=== PATIENT | female | born 1950 | race Caucasian/White ===

== ENCOUNTER 2018-10-30 10:02 | Day surgery (SDC) ==
[2018-10-27 10:24] LABS: HEMATOCRIT 40.1 % (37.0-47.0); HEMOGLOBIN 12.9 g/dL (12.0-16.0); MCH 29.7 PG (27-31); MCHC 32.2 g/dL (33-37); MCV 92.2 FL (81-99); MPV 10.9 FL (7.4-10.4); RBC 4.35 XMIL (4.2-5.4); RDW 12.7 % (11.5-14.5); WBC 12.32 X1000 (4.8-10.8)
[2018-10-27 10:31] LABS: INR 0.9; PROTIME 12.2 Seconds (11.0-16.0)
[2018-10-27 10:32] LABS: PTT 29.6 Seconds (22.3-41.8)
--- NOTE | 2018-10-27 10:43 | EKG Report ---
Test Performed on : 10/27/2018 10:03:34 AM Test Reason : PAT Blood Pressure : / mmHG Vent. Rate : 061 BPM Atrial Rate : 061 BPM P-R Int : 196 ms QRS Dur : 134 ms QT Int : 436 ms P-R-T Axes : 064 -21 129 degrees QTc Int : 438 ms Normal sinus rhythm. Left bundle branch block Abnormal ECG When compared with ECG of 03-DEC-2017 06:34, No significant change was found Confirmed by Thalia FERNANDES, Benito Prater ([id number]) on 10/27/2018 1:05:56 PM
[2018-10-27 11:30] LABS: AGAP 15; BUN 18 mg/dL (8-22); CALCIUM 9.5 mg/dL (8.8-10.2); CHLORIDE 102 mmol/L (98-107); COSMO 287; CREATININE 0.8 mg/dL (0.5-0.9); ESTIMATED GFR > 60; GLUCOSE 133 mg/dL (70-104); POTASSIUM 4.7 mmol/L (3.5-5.1); SODIUM 142 mmol/L (136-145); TCO2 25 mmol/L (25-35)
[2018-10-30] MEDS ORDERED: LR 1,000 ML ONE (10:30)
[2018-10-30] MEDS ORDERED: KEFZOL 1 GM/D5W 2 GM/100 ML IVPB ONE (10:30)
[2018-10-30] MEDS ORDERED: ROBINUL ONE (11:05)
[2018-10-30] MEDS ORDERED: XYLOCAINE-MPF 2% ONE (11:05)
[2018-10-30] MEDS ORDERED: DIPRIVAN 1% ONE (11:05)
[2018-10-30] MEDS ORDERED: ZOFRAN ONE (11:08)
[2018-10-30] MEDS ORDERED: DECADRON ONE (11:08)
[2018-10-30] MEDS ORDERED: SENSORCAINE 0.25%/EPI 1:200,000 ONE (11:12)
[2018-10-30] MEDS ORDERED: METROGEL-VAGINAL 0.75% GEL ONE (11:12)
[2018-10-30] MEDS ORDERED: BACITRACIN ONE (11:13)
[2018-10-30] MEDS ORDERED: SODIUM CHLORIDE 0.9% ONE (11:13)
[2018-10-30] MEDS ORDERED: NEOSPORIN G.U. IRRIGANT ONE (11:13)
[2018-10-30] MEDS ORDERED: VERSED ONE (12:50)
[2018-10-30] MEDS ORDERED: FENTANYL ONE ×2 (13:03→14:17)
[2018-10-30] MEDS ORDERED: AK-FLUOR ONE (14:27)
[2018-10-30] MEDS: DILAUDID ONE ×2 (15:42→15:48)
[2018-10-30] MEDS ORDERED: NS 1,000 ML ONE (15:57)
[2018-10-30] MEDS ORDERED: NORCO-5 ONE (16:12)
[2018-10-30] MEDS ORDERED: MORPHINE IV PRN (16:32)
[2018-10-30] MEDS ORDERED: NORCO-5 PO PRN (16:45)
[2018-10-30] MEDS ORDERED: ZOFRAN IV PRN (16:45)
[2018-10-30] MEDS ORDERED: OFIRMEV 1000 MG/ISOTONIC SOLN 1,000 MG/100 ML BOTTLE IV PRN (16:45)
[2018-10-30] MEDS ORDERED: NORCO-10 PO PRN (16:45)
[2018-10-30] MEDS ORDERED: NS 1,000 ML IV SCH (16:45)
[2018-10-30] MEDS ORDERED: SODIUM CHLORIDE 0.9% INJ PRN (16:45)
[2018-10-30] MEDS ORDERED: PHENERGAN PO PRN (16:45)
[2018-10-30] MEDS ORDERED: TYLENOL PO PRN (16:45)
[2018-10-30] MEDS ORDERED: DITROPAN PO PRN (16:45)
[2018-10-30] MEDS ORDERED: LABETALOL IV PRN (16:45)
[2018-10-30] MEDS ORDERED: BENADRYL LIQUID PO PRN (16:45)
[2018-10-30] MEDS ORDERED: PHENERGAN IV PRN (16:45)
[2018-10-30] MEDS ORDERED: PHENERGAN PR PRN (16:45)
[2018-10-30] MEDS ORDERED: OXY IR PO PRN ×2 (16:45)
[2018-10-30] MEDS ORDERED: NORCO-7.5 PO PRN (16:45)
[2018-10-30] MEDS: KEFZOL 2 GM/D5W 2 GM/50 ML IVPB IV SCH (18:31)
[2018-10-30] MEDS: DILAUDID IV PRN ×2 (18:33→21:55)
[2018-10-30] MEDS ORDERED: PERIDEX MT SCH (21:00)
[2018-10-30] MEDS: COLACE PO SCH (21:55)
[2018-10-31 00:03] LABS: URINE SOURCE CATH
[2018-10-31 00:20] LABS: BILIRUBIN URINE NEGATIVE (NEGATIVE); BLOOD URINE NEGATIVE (NEGATIVE); COLOR YELLOW; GLUCOSE URINE NEGATIVE (NEGATIVE); KETONE URINE NEGATIVE (NEGATIVE); LEUKOCYTES URINE NEGATIVE (NEGATIVE); NITRITE URINE NEGATIVE (NEGATIVE); PROTEIN URINE NEGATIVE (NEGATIVE); SP GRAVITY URINE 1.009; TURBIDITY URINE CLEAR (CLEAR); UR EPITHELIAL CELLS <10 /HPF (<10); URINE BACTERIA NEGATIVE /HPF; URINE RBC <10 /HPF (<10); URINE WBC <10 /HPF (<10); UROBILINOGEN URINE NORMAL (NORMAL)
[2018-10-31] MEDS: KEFZOL 2 GM/D5W 2 GM/50 ML IVPB IV SCH ×2 (03:07→11:31)
[2018-10-31] MEDS: DILAUDID IV PRN ×2 (03:12→05:46)
[2018-10-31 06:54] LABS: HEMATOCRIT 35.3 % (37.0-47.0); HEMOGLOBIN 11.2 g/dL (12.0-16.0); MCH 29.5 PG (27-31); MCHC 31.7 g/dL (33-37); MCV 92.9 FL (81-99); RBC 3.8 XMIL (4.2-5.4); WBC 12.95 X1000 (4.8-10.8)
[2018-10-31 07:53] LABS: CALCIUM 8.2 mg/dL (8.8-10.2); POTASSIUM 4.6 mmol/L (3.5-5.1)
[2018-10-31] MEDS: COLACE PO SCH (08:04)
[2018-10-31] MEDS ORDERED: ASPIRIN EC PO SCH (09:00)
[2018-10-31 12:28] VITALS: BP 165/57
[2018-11-06] MEDS ORDERED: PLAVIX PO SCH (09:00)
--- NOTE | 2018-11-19 15:02 | OPERATIVE NOTE ---
PROCEDURE DATE: 10/30/2018 SURGEON: Durga Levi MD PREOPERATIVE DIAGNOSIS: Symptomatic cystocele, vaginal vault prolapse, and stress urinary incontinence. POSTOPERATIVE DIAGNOSIS: Symptomatic cystocele, vaginal vault prolapse, and stress urinary incontinence. PROCEDURE: Cystocele repair with axis dermis, extraperitoneal vaginal vault suspension, placement of Altis mid urethral sling, cystourethroscopy x2, and right diagnostic ureteroscopy. INDICATIONS: A 68-year-old female, who underwent hysterectomy for benign reasons. She developed bladder prolapse which precludes her from activities of daily living. She also reports occasional associated stress urinary incontinence. Upon examination, she had significant cystocele and vaginal vault prolapse. She was counseled on primary versus graft assisted repair versus mesh assisted repair abdominally, and wants to proceed vaginally with graft repair. She was also counseled on the sling. FINDINGS: Cystourethroscopy after cystocele repair revealing no evidence of injury to the bladder or the urethra, and I was able to visualize bilateral clear ureteral efflux. Cystourethroscopy after Altis mid urethral sling placement showed no evidence of injury to the bladder or the urethra with left clear efflux seen, and no efflux seen on the right prompting eventually a right diagnostic ureteroscopy which revealed no evidence of ureteral injury or obstruction. The 8 x 12 axis dermis graft was used. DESCRIPTION OF PROCEDURE: After obtaining informed consent, patient was brought to the operating room. Perioperative antibiotics and anesthesia were administered. She was placed in lithotomy position with her upper and lower extremities appropriately padded. She was prepped and draped in sterile fashion. A 16-British Banegas catheter was introduced, and bladder was drained. Colorectal retractor was used for exposure. We identified the vaginal apex. We then used 40 mL of Marcaine with epinephrine diluted 50:50 with normal saline to perform hydrodissection and local anesthetic n between the bladder neck identifiable by palpable Banegas balloon and the vaginal vault. Following that, a 15 blade was used to make an incision anterior vaginal wall. We dissected through the entire vaginal epithelium, and performed full-thickness dissection with Metzenbaum scissors freeing up the bladder laterally. Eventually, surgeon's finger was used to palpate sacrospinous ligament bilaterally. I cleared off the ligament bluntly. I then dissected toward the bladder neck with Metzenbaum scissors. I then dissected to the vaginal vila with Metzenbaum scissors. The 2-0 PDS suture x2 were placed at the apex of the vagina, and secured with hemostats. We then opened 8 x 12 cm axis dermis graft, and soaked it in normal saline for approximately 5 minute. A marking pen was used to demarcate the appropriate state for mesh, and heavy scissors were used to trim the mesh with forearms. Following that, we used anchorsure device per dry cleaning counter clerk instructions to place sutures through the sacrospinous ligament approximately 2 cm medial to the ischial spine. Tugging on the sutures confirmed proper placement as well as palpation of the anchors with surgeon's finger. Following that, I used free needles and threaded previously placed vaginal apex sutures as well as the sacrospinous ligament sutures through the appropriate ends of the mesh. We used a 2-0 PDS suture x2 to secure the stitch through the obturator membrane. We then placed those sutures through the anterior arms of the mesh. The sutures were then all tied. The mesh appeared to lie flat without being overly redundant. I placed 2 more 2-0 PDS sutures at the level of bladder neck to allow to lay in appropriate place. Following that, we performed cystourethroscopy with 70-degree lens. It revealed no evidence of injury to the urethra. The bladder showed no evidence of mucosal lesions. There were a few mild trabeculations. No diverticula. No stones in the bladder lumen. I was able to visualize bilateral clear ureteral efflux. We then removed the cystoscope, and replaced Banegas catheter. The wound was copiously irrigated. Hemostasis appeared to be excellent. I then used a 2-0 running Vicryl suture to close the deeper tissues over the graft to help with imbibition. We then irrigated the layers and closed the vaginal epithelium with 2-0 Vicryl suture in a running fashion locking every other suture. The redundant vaginal epithelium was trimmed approximately 1 cm on each side and discarded. Following that, attention was directed to placement of mid urethral sling. Next, 10 mL of Marcaine with epinephrine diluted 50:50 normal saline were used to hydro dissect the area of the mid urethra. A 3 cm incision was made. Metzenbaum scissors were used to dissect through the entire length including freeing up areas around the periurethral shoulders until surgeon's small finger was able to palpate the obturator membrane. I was then able to open the sling. The sling was opened and soaked in saline. I loosened the tightening suture. We then introduced the helical trocars per dry cleaning counter clerk's suggestions and introduced the one arm of the sling through the obturator membrane, and then the 2nd arm of the sling to the obturator membrane. The sling appeared to lie flat overlying the mid urethra. The tension suture was appropriately adjusted. We then performed cystourethroscopy with 70-degree lens. It revealed no evidence of injury to the urethra or the bladder. There was no evidence of sling within the bladder or the urethra. I was able to see left ureteral efflux easily. The right ureteral efflux was not as easily seen. We had anesthesia administer IV dye and fluorescein, and eventually I could yellow fluid from the left ureteral orifice, but I could not see still efflux from the right ureteral orifice. This prompted replacement with open ended ureteral catheter which was 5-British into the right ureteral orifice. About 3 to 4 cm above the ureteral orifice, I felt like I might be meeting resistance. Hence, I removed the open-end ureteral catheter and placed a PTFE wire. Following that, I introduced rigid ureteroscope alongside of the wire. The ureteroscope was advanced all the way to the level of the ureteropelvic junction. There was no evidence of ureteral injury or obstruction whatsoever. Upon retrieving the ureteroscope, there was plenty of bright yellow fluorescein dye coming out from the right ureteral orifice. We removed the cystoscope and placed a 16-British Banegas catheter back in. The wound was irrigated. 3-0 Vicryl running suture was used to close the incision. Following that, I introduced a vaginal packing coated with metronidazole. Banegas catheter was left to gravity drainage. She was extubated and taken to PACU for further recovery. ESTIMATED BLOOD LOSS: 50 mL. COMPLICATIONS: None. DRAINS: 16-British Banegas catheter. SPECIMENS: Vaginal redundant epithelium which was discarded. DISPOSITION: To PACU and subsequent floor with Banegas catheter to gravity drainage and packing in place until the next day. cc: Durga Levi MD
== END 2018-10-31 13:51 | disposition home or self-care (01) ==
LOC: 4N 10:02 → OPS 10:02 → PAT 10:02 → OPS 10-31 13:51
PROVIDERS: ATTEND Urology